=== PATIENT | male | born 1975 | race Caucasian/White ===

== ENCOUNTER 2022-12-31 10:07 | Emergency (ER) | payer SELFPAY ==
[~2022-12-31] VITALS: Ht 182.9 cm; Wt 102.2 kg
[~2022-12-31 10:07] MED LIST: CYCL-1 PO; HYDR-4383 PO; NAPR-1154 PO
[2022-12-31 10:09] VITALS: BP 179/94
[2022-12-31] MEDS ORDERED: BUPR1FIL7 SL (10:26)
[2022-12-31] MEDS: buprenorphine/naloxone 8MG-2MG SUBlingual film SL SCH ×2 (10:46→10:48)
--- NOTE | 2022-12-31 15:42 | NUR ---
PT CALLED STATING THAT [facility] HAS NOT RECEIVED HIS RX FOR SUBOXIN. DR WILLIS NOTIFIED THAT PT REQUESTED THAT RX BE CALLED TO [facility] [address] DUE TO NO RESPONSE FROM [facility] AND OTHER PHARMACIES CALLED DID NOT HAVE THE MEDICATION. SUBOXIN 12MG-3MG STRIPS; 1 STRIP SL DAILY FOR 7 DAYS, #7 NO REFILLS WAS CALLED INTO [facility] [address].
[2023-01-01] MEDS ORDERED: buprenorphine/naloxone 8MG-2MG SUBlingual film SL SCH (08:00)
== END 2022-12-31 10:48 | disposition home or self-care (01) ==
LOC: ER 10:09
DX: Z76.0 Encounter for issue of repeat prescription (principal)
CPT/HCPCS: 99282

== ENCOUNTER 2023-04-30 16:42 | Emergency (ER) | payer SELFPAY ==
[~2023-04-30] VITALS: Ht 182.9 cm; Wt 90.6 kg
[~2023-04-30 16:42] MED LIST changes: +BUPR1FIL7 SL
[2023-04-30 16:48] VITALS: BP 178/74; PULSE 80; TEMP 98.6; O2SAT 98
[2023-04-30] MEDS ORDERED: buprenorphine/naloxone 8MG-2MG SUBlingual film SL STA (18:39)
[2023-04-30] MEDS ORDERED: ketorolac trometh. 30mg/ml inj. IM ONE (18:40)
[2023-04-30] MEDS ORDERED: BUPR1FIL3 SL ×2 (18:41→18:43)
[2023-04-30 19:06] VITALS: RESP 18
== END 2023-04-30 19:10 | disposition home or self-care (01) ==
LOC: ER 16:43
DX: F11.23 Opioid dependence with withdrawal (principal); Z79.899 Other long term (current) drug therapy
CPT/HCPCS: 96372; 99283; J1885